=== PATIENT | male | born 1960 | race Caucasian/White ===

== ENCOUNTER 2020-10-27 16:12 | Emergency (ER) | payer OTHER ==
[~2020-10-27] VITALS: Ht 154.9 cm; Wt 83.9 kg
[2020-10-27 17:01] VITALS: BP 150/91
[2020-10-27] MEDS ORDERED: LIDOCAINE 2% 100 MG/5 ML SYR IVP ONE ×3 (18:40→20:10)
[2020-10-27] MEDS ORDERED: ACETAMINOPHEN 325 MG TAB PO ONE (18:40)
[2020-10-27 19:06] LABS: BASOPHILS # (AUTO) 0.1 K/uL (0.00-0.22); BASOPHILS % (AUTO) 0.5 % (0.0-2.0); EOSINOPHILS # (AUTO) 0.4 K/uL (0-0.4); EOSINOPHILS % (AUTO) 2.5 % (0.0-4.0); HEMATOCRIT 41.3 % (36-52); HEMOGLOBIN 13.3 g/dL (12.0-18.0); LYMPHOCYTES # (AUTO) 3.3 K/uL (2.0-11.5); LYMPHOCYTES % (AUTO) 18.6 % (20.5-51.1); MEAN CORPUSCULAR HEMOGLOBIN 29 pg (27-31); MEAN CORPUSCULAR HGB CONC 32 g/dL (33-37); MEAN CORPUSCULAR VOLUME 89.6 fL (80-94); MONOCYTES # (AUTO) 0.9 K/uL (0.8-1.0); MONOCYTES % (AUTO) 5.1 % (1.7-9.3); NEUTROPHILS # (AUTO) 12.9 K/uL (1.8-7.7); NEUTROPHILS % (AUTO) 73.3 % (42.2-75.2); PLATELET COUNT (AUTO) 415 K/uL (140-450); RED BLOOD CELL COUNT(AUTO) 4.61 MIL/uL (4.20-6.10); RED CELL DISTRIBUTION WIDTH 13.8 % (11.6-13.7); WHITE BLOOD COUNT (AUTO) 17.5 K/uL (4.8-10.8)
--- NOTE | 2020-10-27 19:22 | NUR ---
PT AMBULATED TO BED #3
[2020-10-27 19:26] LABS: CARBON DIOXIDE 25.2 mmol/L (21-32); CREATININE 2.3 mg/dL (0.6-1.3); POTASSIUM 4.2 mmol/L (3.5-5.1)
--- NOTE | 2020-10-27 19:35 | NUR ---
60 YO M BIB SELF WITH C/C OF SHARP R KNEE PAIN 10/10 X1WK. KNEE IS WARM TO TOUCH, PAIN COMES AND GOES, VISIBILY SWOLLEN. PAIN RAD FROM KNEE DOWN TO CALF . PT TOOK 800 MG OF IBUPROFEN WITH RELIEF. HX: DM2 RX:METFORMIN, SIMVASTATIN, GLIPIZIDE
--- NOTE | 2020-10-27 20:11 | NUR ---
SYNOVIAL FLUID COLLECTED BY ERMD AND TAKEN TO LAB.
[2020-10-27 20:25] LABS: APPEARANCE,SPUN,BODY FLUID CLEAR (CLEAR); APPEARANCE,UNSPUN,BODY FLUID BLOODY (CLEAR); SPECIMENTYPE,BODY FLUID SYNOVIAL
[2020-10-27 20:26] LABS: TOTAL VOLUME,BODY FLUID 20 mL
--- NOTE | 2020-10-27 21:18 | NUR ---
PT AMBULATED TO RR AND BACK TO BED USING CANE. PT STATES HE FEELS MUCH BETTER TO WALK, LESS PRESSURE IN R KNEE.
[2020-10-27 21:24] LABS: COLOR,BODY FLUID YELLOW (LT YELLOW)
[2020-10-27 21:25] LABS: WBC, BODY FLUID 7920 /cu. mm.
[2020-10-27 21:26] LABS: GLUCOSE,BODY FLUID 99 mg/dL; POLYNUCLEAR, BODY FLUID 88 %; RBC, BODY FLUID 8496 /cu. mm.
[2020-10-27] MEDS ORDERED: VANCOMYCIN 1,000 MG in DEXTROSE 5% 250 ML IV SCH (22:20)
[2020-10-27] MEDS ORDERED: VANCOMYCIN 1,000 MG VIAL ONE (22:26)
--- NOTE | 2020-10-27 22:47 | NUR ---
SWAB COOLLECTED AND TAKEN TO LAB.
--- NOTE | 2020-10-28 | NUR ---
AMBULATED TO USING CANE AND BACK TO BED.
--- NOTE | 2020-10-28 00:21 | NUR ---
REPORT GIVEN TO HECTOR KELLEY AT [facility].
--- NOTE | 2020-10-28 00:23 | NUR ---
PT IS SITTING UP IN CHAIR USING PHONE. ALL NEEDS MET AT THIS TIME.
[2020-10-28 00:38] VITALS: BP 165/87
--- NOTE | 2020-10-28 00:38 | NUR ---
Patient to be transferred to [facility]. Is being transferred due to INSURANCE. Receiving facility has accepting physician and available space. ER physician has signed transfer form. Patient or responsible democrat has agreed to transfer and signed form. Patient belongings inventoried and will be sent with patient. Copy of nursing notes, lab reports, EKG, Physicians Orders and X-rays to be sent with patient. Report called to HECTOR KELLEY at receiving facility. [facility] ambulance service has been called for transfer. ETA is 15.
== END 2020-10-28 00:38 | disposition short-term general hospital (02) ==
LOC: MED 16:12
DX: S82.001A Unspecified fracture of right patella, initial encounter for closed fracture (principal); Z20.822 Contact with and (suspected) exposure to COVID-19; E11.9 Type 2 diabetes mellitus without complications; Z88.0 Allergy status to penicillin; X58.XXXA Exposure to other specified factors, initial encounter; Y93.89 Activity, other specified; Y92.89 Other specified places as the place of occurrence of the external cause; Y99.8 Other external cause status
CPT/HCPCS: 20611; 36415; 73562; 80048; 82945; 82948; 84157; 85025; 85651; 86140; 87070; 87205; 87426; 89051; 96365; 99285; J2001; J3370

== ENCOUNTER 2022-04-01 11:41 | Emergency (ER) | payer OTHER ==
[~2022-04-01] VITALS: Ht 154.9 cm; Wt 86.2 kg
[2022-04-01 11:51] VITALS: BP 122/75
--- NOTE | 2022-04-01 12:32 | NUR ---
PT AMBULATED TO BED 12
--- NOTE | 2022-04-01 12:33 | NUR ---
61/M WHEELCHAIR ASSISTED C/O RIGHT LEG PAIN X1 MONTH. DENIES ANY RECENT INJURY OR TRAUMA. NO EDEMA NOTED TO LEG. NO OPEN WOUND NOTED. PT STATES TAKING LASIX X 4 OF UNSPECIFIED DOSAGE, STATING HIS FRIEND TOLD HIM TO TAKE LASIX IT APPEARS SWOLLEN. BP WNL. AAO4, VITALS STABLE. ALLERGY: PCN PMH: DM, HTN, HDL
[2022-04-01 14:05] LABS: BASOPHILS # (AUTO) 0.1 K/uL (0.00-0.22); BASOPHILS % (AUTO) 0.7 % (0.0-2.0); EOSINOPHILS # (AUTO) 0.2 K/uL (0-0.4); EOSINOPHILS % (AUTO) 1.7 % (0.0-4.0); HEMOGLOBIN 11.7 g/dL (12.0-18.0); LYMPHOCYTES # (AUTO) 2.5 K/uL (2.0-11.5); LYMPHOCYTES % (AUTO) 18.1 % (20.5-51.1); MEAN CORPUSCULAR HEMOGLOBIN 30 pg (27-31); MEAN CORPUSCULAR HGB CONC 33 g/dL (33-37); MEAN CORPUSCULAR VOLUME 91.9 fL (80-94); MONOCYTES # (AUTO) 0.7 K/uL (0.8-1.0); MONOCYTES % (AUTO) 5.1 % (1.7-9.3); NEUTROPHILS # (AUTO) 10.4 K/uL (1.8-7.7); NEUTROPHILS % (AUTO) 74.4 % (42.2-75.2); PLATELET COUNT (AUTO) 281 K/uL (140-450); RED BLOOD CELL COUNT(AUTO) 3.91 MIL/uL (4.20-6.10); RED CELL DISTRIBUTION WIDTH 14.3 % (11.6-13.7); WHITE BLOOD COUNT (AUTO) 13.9 K/uL (4.8-10.8)
[2022-04-01] MEDS ORDERED: MORPHINE SULFATE 4 MG/ML SYR IM ONE (14:05)
[2022-04-01] MEDS ORDERED: ONDA-188 PO (14:10)
[2022-04-01] MEDS ORDERED: ACET-10509 PO (14:10)
[2022-04-01] MEDS ORDERED: ACET-9527 PO (14:10)
[2022-04-01] MEDS ORDERED: DOCU-299 PO (14:10)
[2022-04-01 14:19] LABS: ANION GAP 15.5 (8-16); CARBON DIOXIDE 26.4 mmol/L (21-32); CREATININE 1.7 mg/dL (0.6-1.3); POTASSIUM 4.9 mmol/L (3.5-5.1)
--- NOTE | 2022-04-01 14:21 | NUR ---
pt went to xr
[2022-04-01 14:35] VITALS: BP 129/82
== END 2022-04-01 14:35 | disposition home or self-care (01) ==
LOC: MED 11:41
DX: S76.911A Strain of unspecified muscles, fascia and tendons at thigh level, right thigh, initial encounter (principal); E11.9 Type 2 diabetes mellitus without complications; I10 Essential (primary) hypertension; Z79.4 Long term (current) use of insulin; Z79.899 Other long term (current) drug therapy; Z88.0 Allergy status to penicillin; X58.XXXA Exposure to other specified factors, initial encounter; Y93.89 Activity, other specified; Y92.89 Other specified places as the place of occurrence of the external cause; Y99.8 Other external cause status
CPT/HCPCS: 36415; 73502; 80048; 85025; 93005; 96372; 99285; J2270

== ENCOUNTER 2022-05-14 22:49 | Emergency (ER) | payer OTHER ==
[~2022-05-14] VITALS: Ht 147.3 cm; Wt 84.4 kg
[~2022-05-14 22:49] MED LIST: ACET-10509 PO; ACET-9527 PO; DOCU-299 PO; ONDA-188 PO
[2022-05-14 23:05] VITALS: BP 137/50
--- NOTE | 2022-05-14 23:08 | NUR ---
TO LOBBY A/W BED AMBULATORY
[2022-05-15] MEDS ORDERED: ceFAZolin 1,000 MG VIAL IM ONE
--- NOTE | 2022-05-15 00:01 | NUR ---
PT AMBULATED TO CHAIR ACCOMPANIED BY .
[2022-05-15] MEDS ORDERED: CEPH-588 PO (00:02)
[2022-05-15] MEDS ORDERED: NAPR-54 PO (00:02)
[2022-05-15] MEDS ORDERED: WATER STERILE 10 ML MC ONE (00:18)
--- NOTE | 2022-05-15 00:20 | NUR ---
Patient discharged with v/s stable. Written and verbal after care instructions given and explained by dr dozier. Patient alert, oriented and verbalized understanding of instructions. Ambulatory with steady gait. All questions addressed prior to discharge. ID band removed. Patient advised to follow up with PMD. Rx of KEFLEX NAPROSYN given. Patient educated on indication of medication including possible reaction and side effects. Opportunity to ask questions provided and answered.
== END 2022-05-15 00:20 | disposition home or self-care (01) ==
LOC: MED 22:49
DX: L03.113 Cellulitis of right upper limb (principal); E11.9 Type 2 diabetes mellitus without complications; I10 Essential (primary) hypertension; Z79.4 Long term (current) use of insulin; Z79.899 Other long term (current) drug therapy
CPT/HCPCS: 73090; 73130; 96372; 99284; J0690